=== PATIENT | female | born 1970 | race Caucasian/White ===

== ENCOUNTER → 2017-10-27 | Outpatient (CLI) | payer OTHER ==
[~2017-10-27] MED LIST: ACET500T68 PO; AMOX-559 PO; ASPI-1441 PO; ATOR20TA22 PO; CEP500 PO; CETI10CA8 PO; CIPR-214 PO; CIPR-344 PO; CITRICEL; CRAN500C11 PO; FAM20 PO; FAMO20TA28 PO; FESO8PT PO; FLAX100042 PO; FLUT16SP20 NS; GUAI600T57 PO; HYDR-385 PO; HYDR-389 PO; IBU600 PO; IBUP100T49 PO; IBUP600T22 PO; LEV112 PO; LEVO-3 PO; LOR5/325 PO; LORA10CA3 PO; MONT10TA PO; NITR50CA35 PO; PHEN200T32 PO; PHENA200 PO; TOLT4CAP13 PO
--- NOTE | 2017-10-30 10:56 | RADIOLOGY IMAGING REPORT ---
FACILITY: [facility] PATIENT NAME: ZANA CHERY : [id number] MR: [id number] V: [id number] EXAM DATE: ORDERING PHYSICIAN: SAÚL BRICE TECHNOLOGIST: Crystal Cabrera PROCEDURE:BILATERAL DIGITAL SCREENING MAMMOGRAM WITH CAD ASSISTED INTERPRETATION & 3D TOMOSYNTHESIS COMPARISON:Prior mammograms 10/26/16, 10/14/15, 07/21/14, 05/22/13, 04/24/12, 01/11/11. INDICATIONS:SCREENING FINDINGS: Dense heterogeneous fibroglandular tissue is seen throughout the breasts. The parenchymal pattern has remained stable allowing for difference in mammographic technique & patient positioning. There is no evidence of malignant appearing mass, malignant appearing calcifications or other secondary sign of malignancy in either breast. DIAGNOSTIC CATEGORY 1--NEGATIVE. RECOMMENDATIONS: ROUTINE MAMMOGRAM AND CLINICAL EVALUATION. IMPRESSION: BIRADS 1: Negative. No significant abnormality is seen. Dictated by: Ifrah Molina M.D. on 10/27/2017 at 12:06 Transcribed by: HOWARD on 10/27/2017 at 15:30 Approved by: Ifrah Molina M.D. on 10/30/2017 at 10:55 [facility]
== END ==
LOC: MAMO 00:47
PROVIDERS: ATTEND Internal Medicine
DX: Z12.31 Encounter for screening mammogram for malignant neoplasm of breast (principal)
CPT/HCPCS: 77063; 77067

== ENCOUNTER → 2017-12-19 | Outpatient (CLI) | payer OTHER | LOC: LAB 11:17 | DX: R31.1 Benign essential microscopic hematuria (principal) | CPT/HCPCS: 99001 ==

== ENCOUNTER → 2018-06-28 | Outpatient (CLI) | payer OTHER ==
--- NOTE | 2018-06-28 16:52 | RADIOLOGY IMAGING REPORT ---
FACILITY: [facility] PATIENT NAME: Priyanka Marsh : 1970 MR: [id number] V: [id number] EXAM DATE: ORDERING PHYSICIAN: SAÚL BRICE TECHNOLOGIST: Location: [facility] [place] Patient: Priyanka Marsh : 1970 Visit/Account:[id number] Date of Sevice: 06/28/2018 Pelvic ultrasound HISTORY: Pelvic pain. COMPARISON: CT abdomen and pelvis dated 09/20/2016. Findings: Standard transabdominal pelvic ultrasound with color flow and spectral analysis. Uterus: Uterus measurement: 8.1 x 5.2 x 3.2 cm Endometrium measurement: 11 mm No suspicious mass. Adnexa: Right ovary: 3.2 x 3.2 x 2.6 cm Left ovary: 3.4 x 2.5 x 2.1 cm Small simple cysts versus follicles in the ovaries measuring under 3 cm. No suspicious mass. Free fluid: None. Urinary bladder: Negative. IMPRESSION: Small bilateral ovarian cysts versus follicles. Otherwise unremarkable pelvic ultrasound . Report Dictated By: Mike Celestin MD at 06/28/2018 4:44 PM Report E-Signed By: Mike Celestin MD at 06/28/2018 4:48 PM WSN:[email or web address]
== END ==
LOC: US 00:57
PROVIDERS: ATTEND Internal Medicine
DX: N83.291 Other ovarian cyst, right side (principal); N83.292 Other ovarian cyst, left side
CPT/HCPCS: 76856